=== PATIENT | female | born 1955 | race Caucasian/White ===

== ENCOUNTER 2017-09-22 09:52 | Emergency (ER) | payer BC ==
--- NOTE | 2017-09-22 12:29 | UC ---
Throat Pain/Nasal Negro HPI - HPI Summary HPI Summary: 62 year old female presents with complains of losing her voice, sore throat and chest congestion. - History of Current Complaint Chief Complaint: UCRespiratory Stated Complaint: CONGESTION SINUS Time Seen by Provider: 09/22/17 12:23 Hx Obtained From: Patient Hx Last Menstrual Period: n/a Onset/Duration: Sudden Onset Severity: Moderate Cough: Nonproductive Associated Signs & Symptoms: Positive: Dysphagia, Wheezing - Allergies/Home Medications Allergies/Adverse Reactions: Allergies Allergy/AdvReac Type Severity Reaction Status Date / Time Epinephrine Allergy Severe See Comment Verified 03/20/13 08:18 Erythromycin Allergy Unknown FACIAL Verified 03/20/13 08:18 SWELLING Tetraglycine Allergy Unknown FACIAL Verified 03/20/13 08:18 SWELLING Prednisone Allergy EYE Verified 03/20/13 08:18 PESSURE INCREASED Tetracycline Allergy Swelling Verified 09/22/17 10:39 Of Face,Lips,& Throat Propoxyphene [From Darvon] AdvReac Mild GI Upset Verified 03/20/13 08:18 Home Medications: Home Medications Amphetamine Sulfate [Evekeo] 5 mg PO DAILY 09/22/17 [History Confirmed 09/22/17] Aspirin EC Low Dose* [Ecotrin EC Low Dose 81 MG*] 81 mg PO DAILY 09/22/17 [ History Confirmed 09/22/17] Dextroamphetamine (NF) TAB [Dexedrine TAB*] 5 mg PO DAILY 09/22/17 [History Confirmed 09/22/17] PMH/Surg Hx/FS Hx/Imm Hx Previously Healthy: Yes - Surgical History Surgical History: Yes Surgery Procedure, Year, and Place: 1962 [place]ENDECTOMY [place]. KIDNEY STONE [place]. 1989 RT BREAST LUMPECTOMY, BENIGN [place]. 1991 S[place]US SCRAPPING [place]. 1995 RADIO [place]- B[place] [facility] [place] B[place] replacements. Cardiac Stent 10/07. 1996 [place]STERECTOMY [place]. 2004 TOTAL HIP REPLACEMENT [place], RIGHT. 2009 TOTAL HIP REPLACEMENT [place] , LEFT. 04/2012 BUTTERFLY TUBES BOTH EARS. CARDIAC STENT LEFT, 09/2012, [place] - Family History Known Family History: Positive: None - Social History Alcohol Use: None Substance Use Type: None Smoking Status (MU): Never Smoked Tobacco Review of Systems Constitutional: Negative Skin: Negative Eyes: Drainage, Eye Redness ENT: Negative, Sore Throat, Nasal Discharge, Sinus Congestion, Sinus Pain/ Tenderness Respiratory: Cough Cardiovascular: Negative Gastrointestinal: Negative Genitourinary: Negative Motor: Negative Neurovascular: Negative Musculoskeletal: Negative Neurological: Negative Psychological: Negative All Other Systems Reviewed And Are Negative: Yes Physical Exam Triage Information Reviewed: Yes Vital Signs: Initial Vital Signs Temp 37.1 C 09/22/17 10:32 Pulse 86 09/22/17 10:32 Resp 18 09/22/17 10:32 BP 138/89 09/22/17 10:32 Pulse Ox 99 09/22/17 10:32 Vital Signs Reviewed: Yes Eye Exam: Normal ENT: Positive: Pharyngeal erythema, Nasal congestion, Nasal drainage, Sinus tenderness Dental Exam: Normal Neck exam: Normal Neck: Positive: 1 Respiratory: Positive: Wheezing Cardiovascular Exam: Normal Abdominal Exam: Normal Musculoskeletal Exam: Normal Neurological Exam: Normal Psychological Exam: Normal Skin Exam: Normal Throat Pain/Nasal Course/Dx - Differential Dx/Diagnosis Provider Diagnoses: cough. sinus congestion. wheezing Discharge - Discharge Plan Condition: Stable Disposition: HOME Prescriptions: Amoxicillin/Clavulanate TAB* [Augmentin TAB 875*] 875 mg PO BID #20 tab Guaifenesin-Codeine [Cheratussin AC] 1 teasp PO Q8H PRN #120 ml MDD 15 ml PRN Reason: Cough LoraTADine TAB(NF) [Claritin 10 MG TAB(NF)] 10 mg PO DAILY #30 tab Magic M W2 Sergo/Maal/Nyst/Lido* 5 ml SWISH SPIT QID PRN #120 ml PRN Reason: Pain Patient Education Materials: Laryngitis (ED), Acute Cough (ED) Referrals: Jessi Jimenez MD [Primary Care Provider] -
[2017-09-22 12:53] VITALS: BP 132/86
== END 2017-09-22 12:59 | disposition home or self-care (01) ==
LOC: UCCORT 09:52
DX: R05 Cough (principal); J34.89 Other specified disorders of nose and nasal sinuses; R06.2 Wheezing
CPT/HCPCS: 87502; 87651; 99202; G0463

== ENCOUNTER 2017-12-13 09:52 | Emergency (ER) | payer BC ==
[2017-12-13 10:16] VITALS: BP 142/71
--- NOTE | 2017-12-13 10:44 | UC ---
Back Pain HPI - HPI Summary HPI Summary: PT HAS CHRONIC BACK PAIN. EXACERBATED SX A WEEK OR SO AGO BY DOING STRENUOUS HOUSEWORK. HAS BEEN GOING TO PT AND MASSAGE WITHOUT MUCH HELP. 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 - History of Current Complaint Chief Complaint: UCBackPain Stated Complaint: BACK PAIN Time Seen by Provider: 12/13/17 10:33 Hx Obtained From: Patient Hx Last Menstrual Period: n/a Onset/Duration: Gradual Onset, Lasting Days, Still Present Timing: Constant Severity Initially: Moderate Severity Currently: Moderate Pain Intensity: 7 Pain Scale Used: 0-10 Numeric Character: Sharp, Stiffness Aggravating Factor(s): Movement Alleviating Factor(s): Nothing Associated Signs And Symptoms: Negative: Swelling, Redness, Weakness, Numbness, Tingling, Abdominal Pain, Flank Pain, Bladder Incontinence, Bowel Incontinence - Allergies/Home Medications Allergies/Adverse Reactions: Allergies Allergy/AdvReac Type Severity Reaction Status Date / Time MS Epinephrine [Epinephrine] Allergy Severe See Comment Verified 03/20/13 08:18 MS Erythromycin Allergy Unknown FACIAL Verified 03/20/13 08:18 [Erythromycin] SWELLING MS Tetraglycine Allergy Unknown FACIAL Verified 03/20/13 08:18 [Tetraglycine] SWELLING MS Prednisone [Prednisone] Allergy EYE Verified 03/20/13 08:18 PESSURE INCREASED MS Tetracycline Allergy Swelling Verified 09/22/17 10:39 [Tetracycline] Of Face,Lips,& Throat MS Propoxyphene [From Darvon] AdvReac Mild GI Upset Verified 03/20/13 08:18 Home Medications: Home Medications Acetaminophen 650 mg PO 12/13/17 [History] PMH/Surg Hx/FS Hx/Imm Hx Cardiovascular History: Cardiac Disease, Hypertension - Surgical History Surgical History: Yes Surgery Procedure, Year, and Place: 1962 APPENDECTOMY [place]. KIDNEY STONE [place]. 1989 RT BREAST LUMPECTOMY, BENIGN [place]. 1991 [place]US SCRAPPING [place]. 1995 RADIO [place]- [place]YES [place] [facility] [place] Bilateral hip replacements. Cardiac Stent 10/07. 1996 [place]ERECTOMY [place]. 2004 TOTAL HIP REPLACEMENT [place], RIGHT. 2010 TOTAL HIP REPLACEMENT [place] , LEFT. 04/2012 BUTTERFLY TUBES BOTH EARS. CARDIAC STENT LEFT, 09/2012, [place] - Family History Known Family History: Positive: Hypertension - Social History Alcohol Use: None Substance Use Type: None Smoking Status (MU): Never Smoked Tobacco Review of Systems Constitutional: Negative Skin: Negative Respiratory: Negative Cardiovascular: Negative Gastrointestinal: Negative Musculoskeletal: Arthralgia, Decreased ROM, Myalgia All Other Systems Reviewed And Are Negative: Yes Physical Exam Triage Information Reviewed: Yes Appearance: Well-Appearing, No Pain Distress, Well-Nourished Vital Signs: Initial Vital Signs Temp 99.1 F 12/13/17 10:03 Pulse 71 12/13/17 10:03 Resp 18 12/13/17 10:03 BP 142/71 12/13/17 10:03 Pulse Ox 100 12/13/17 10:03 Vital Signs Reviewed: Yes Eyes: Positive: Conjunctiva Clear ENT: Positive: Hearing grossly normal Neck: Positive: Supple Respiratory: Positive: No respiratory distress, No accessory muscle use Cardiovascular: Positive: Pulses Normal Abdomen Description: Positive: Soft Musculoskeletal: Positive: No Edema, ROM Limited @ - BACK, Other: - TTP PARASPINAL MUSCLES LEFT MIDBACK Neurological: Positive: Alert Psychological: Positive: Age Appropriate Behavior Skin: Negative: rashes Back Pain Course/Dx - Differential Dx/Diagnosis Provider Diagnoses: ACUTE ON CHRONIC MID BACK PAIN Discharge - Sign-Out/Discharge Documenting (check all that apply): Discharge - Discharge Plan Condition: Stable Disposition: HOME Prescriptions: Cyclobenzaprine TAB* [Flexeril TAB*] 10 mg PO TID PRN #30 tab PRN Reason: Pain Patient Education Materials: Thoracic Pain (ED), Chronic Back Pain (ED) Referrals: Jessi Jimenez MD [Primary Care Provider] - If Needed Additional Instructions: BE SURE TO GO THROUGH SLOW RANGE OF MOTION AND STRETCHING EXERCISES DAILY YOU ARE ABLE TO PREVENT STIFFENING UP AND MAKING THE DISCOMFORT WORSE. KEEP YOUR APPT WITH DR. BARRETO NEXT MONTH. USE THE FLEXERIL AND TYLENOL NEEDED. - Billing Disposition and Condition Condition: STABLE Disposition: HOME
== END 2017-12-13 10:57 | disposition home or self-care (01) ==
LOC: UCCORT 09:52
DX: S29.9XXA Unspecified injury of thorax, initial encounter (principal); G89.29 Other chronic pain; X50.0XXA Overexertion from strenuous movement or load, initial encounter; Y93.E9 Activity, other interior property and clothing maintenance; Y92.009 Unspecified place in unspecified non-institutional (private) residence as the place of occurrence of the external cause; Z88.5 Allergy status to narcotic agent; I10 Essential (primary) hypertension; Z88.8 Allergy status to other drugs, medicaments and biological substances; Z88.1 Allergy status to other antibiotic agents
CPT/HCPCS: 99212; G0463

== ENCOUNTER 2018-01-14 12:57 | Emergency (ER) | payer BC ==
[2018-01-14 14:14] VITALS: BP 132/83
--- NOTE | 2018-01-14 14:58 | UC ---
Respiratory Complaint HPI - HPI Summary HPI Summary: Pt c/o cough, upper chest congestion, raspy voice X 1week. - History of Current Complaint Chief Complaint: UCRespiratory Stated Complaint: UPPER RESPRITORY Time Seen by Provider: 01/14/18 14:36 Hx Obtained From: Patient Hx Last Menstrual Period: n/a ?: No Onset/Duration: Gradual Onset, Lasting Weeks, Still Present Timing: Constant Severity Initially: Mild Severity Currently: Mild Pain Intensity: 0 Character: Cough: Nonproductive Aggravating Factors: Deep Breaths, Recumbent Position Alleviating Factors: Nothing Associated Signs And Symptoms: Positive: URI - Risk Factors Pulmonary Embolism Risk Factors: Negative Cardiac Risk Factors: Hypertension Pseudomonas Risk Factors: Negative Tuberculosis Risk Factors: Negative - Allergies/Home Medications Allergies/Adverse Reactions: Allergies Allergy/AdvReac Type Severity Reaction Status Date / Time epinephrine Allergy See Comment Verified 01/14/18 14:22 erythromycin base Allergy Swelling Verified 01/14/18 14:22 Of Face,Lips,& Throat prednisone Allergy See Comment Verified 01/14/18 14:22 tetracycline Allergy Swelling Verified 01/14/18 14:22 Of Face,Lips,& Throat propoxyphene AdvReac GI Upset Verified 01/14/18 14:22 Home Medications: Home Medications Nebivolol HCl [Bystolic] 2.5 mg PO DAILY 01/14/18 [History Confirmed 01/14/18] PMH/Surg Hx/FS Hx/Imm Hx Previously Healthy: Yes Cardiovascular History: Hypertension Respiratory History: Bronchitis - Surgical History Surgical History: Yes Surgery Procedure, Year, and Place: 1962 APPENDECTOMY [place]. KIDNEY STONE [place]. 1989 RT BREAST LUMPECTOMY, BENIGN [place]. 1991 [place]US SCRAPPING [place]. 1995 RADIO [place]ER[place]- BOTH EYES DR [facility] [place]. Bilateral hip replacements. Cardiac Stent 10/07. 1996 [place]STERECTOMY [place]. 2004 TOTAL HIP REPLACEMENT [place], RIGHT. 2009 TOTAL HIP REPLACEMENT [place] , LEFT. 04/2012 BUTTERFLY TUBES BOTH EARS. CARDIAC STENT LEFT, 09/2012, [place] - Family History Known Family History: Positive: None, Hypertension - Social History Occupation: Retired Lives: With Family Alcohol Use: None Substance Use Type: None Smoking Status (MU): Never Smoked Tobacco Have You Smoked in the Last Year: No Review of Systems Constitutional: Fatigue Skin: Negative Eyes: Negative ENT: Negative Respiratory: Cough Cardiovascular: Negative Gastrointestinal: Negative Genitourinary: Negative Motor: Negative Neurovascular: Negative Musculoskeletal: Negative Neurological: Negative Psychological: Negative Is Patient Immunocompromised?: No All Other Systems Reviewed And Are Negative: Yes Physical Exam Triage Information Reviewed: Yes Appearance: Well-Appearing Vital Signs: Initial Vital Signs Temp 98.4 F 01/14/18 14:01 Pulse 80 01/14/18 14:01 Resp 22 01/14/18 14:01 BP 132/83 01/14/18 14:01 Pulse Ox 99 01/14/18 14:01 Vital Signs Reviewed: Yes Eye Exam: Normal ENT Exam: Other ENT: Positive: Nasal congestion Neck exam: Normal Respiratory: Positive: Normal breath sounds Cardiovascular Exam: Normal Musculoskeletal Exam: Normal Neurological Exam: Normal Psychological Exam: Normal Skin Exam: Normal UC Diagnostic Evaluation - Laboratory O2 Sat by Pulse Oximetry: 99 Respiratory Course/Dx - Differential Dx/Diagnosis Differential Diagnosis/HQI/PQRI: Bronchitis, Influenza, Laryngitis Provider Diagnoses: bronchitis Discharge - Sign-Out/Discharge Documenting (check all that apply): Discharge - Discharge Plan Condition: Stable Disposition: HOME Prescriptions: Amoxicillin PO (*) [Amoxicillin 500 MG CAP*] 500 mg PO Q12H #20 cap Benzonatate CAP* [Tessalon 100 MG CAP*] 100 mg PO Q8H PRN #30 cap PRN Reason: Cough Patient Education Materials: Acute Bronchitis (ED) Referrals: Jessi Jimenez MD [Primary Care Provider] - If Needed Additional Instructions: Please follow up with your PCP or return to clinic as needed. - Billing Disposition and Condition Condition: STABLE Disposition: HOME
== END 2018-01-14 15:10 | disposition home or self-care (01) ==
LOC: UCCORT 12:57
DX: J40 Bronchitis, not specified as acute or chronic (principal); Z88.3 Allergy status to other anti-infective agents; Z88.8 Allergy status to other drugs, medicaments and biological substances
CPT/HCPCS: 99212; G0463